=== PATIENT | female | born 1935 | race Native Hawaiian/Other Pacific Islander ===

== ENCOUNTER 2022-05-04 17:10 | Emergency (ER) | payer OTHER ==
[~2022-05-04] VITALS: Ht 167.6 cm; Wt 57.2 kg
[2022-05-04 17:10] VITALS: BP 151/63; TEMP 98.7
[2022-05-04 17:47] LABS: PLATELET COUNT 243 K/uL (152-353)
[2022-05-04 17:53] LABS: POTASSIUM 4.1 mmol/L (3.6-5.2)
[2022-05-04] MEDS ORDERED: BUSPIRONE10 MG PO (21:22)
[2022-05-04] MEDS ORDERED: TYLENOL325 MG PO (21:22)
[2022-05-04] MEDS ORDERED: ELIQUIS5 MG PO (21:23)
[2022-05-04] MEDS ORDERED: ESCI10TA PO (21:23)
[2022-05-04] MEDS ORDERED: DIVALPROEX125 MG PO (21:23)
[2022-05-04] MEDS ORDERED: LISI20TA11 PO (21:24)
[2022-05-04] MEDS ORDERED: MELATONIN3 M1 PO (21:24)
[2022-05-04] MEDS ORDERED: FAMO20TA4 PO (21:25)
[2022-05-04] MEDS ORDERED: POTASSIUM CHLO20 ME1 PO (21:26)
[2022-05-04] MEDS ORDERED: PRAVASTATIN10 MG PO (21:26)
[2022-05-04] MEDS ORDERED: DENO60SO SC (21:27)
[2022-05-04] MEDS ORDERED: VITAMIN D1000 UNI1 PO (21:28)
[2022-05-04] MEDS ORDERED: TRAZ100T PO (21:28)
[2022-05-05] MEDS ORDERED: VITAMIN D31000 UNIT PO (21:54)
== END 2022-05-04 18:16 | disposition other institution (70) ==
LOC: ED 17:10
PROVIDERS: Family Medicine
DX: F03.911 Unspecified dementia, unspecified severity, with agitation (principal); I10 Essential (primary) hypertension; Z11.52 Encounter for screening for COVID-19; Z04.6 Encounter for general psychiatric examination, requested by authority
CPT/HCPCS: 36415; 80053; 85027; 87635; 93005; 99283; U0003